=== PATIENT | male | born 2000 | race Caucasian/White ===

== ENCOUNTER 2020-04-16 16:12 | Emergency (ER) | payer BC, SELFPAY ==
[2020-04-16 16:13] VITALS: BP 146/06; BP 146/106; PULSE 100; RESP 18; TEMP 35.8; O2SAT 99; BMI 28.8
--- NOTE | 2020-04-16 16:25 | CT_ITS ---
STUDY: CT ABDOMEN AND PELVIS WITHOUT CONTRAST REASON FOR EXAM: Male, 20 years old. PT STATED RLQ PAIN, HX CROHNS RADIATION DOSAGE (If Supplied By Facility): CTDIvol = ( 8.44 ) mGy, DLP = ( 438.70 ) mGycm TECHNIQUE: Transaxial images were obtained from the dome of the diaphragm to the symphysis pubis without oral contrast, and without intravenous contrast. Sagittal and coronal images were reconstructed. Individualized dose optimization techniques were used for this CT. COMPARISON: None. FINDINGS: The visualized lung bases are unremarkable. The visualized portions of the heart are within normal limits. Normal liver. Normal gallbladder and extrahepatic biliary system. Normal spleen. Normal pancreas. Normal bilateral adrenal glands. Right ureteral vesicle junction with mild ureteral dilatation and hydronephrosis. Normal left kidney. Normal visualized stomach. Normal small intestine. Normal colon. The appendix is visualized and appears normal. Normal abdominal aorta. Normal inferior vena cava. Normal retroperitoneum. Normal urinary bladder. Normal abdominal wall. Normal osseous structures. CT/Abdomen/Pelvis without Cont IMPRESSION: 2 mm obstructing stone at the right ureterovesical junction with mild ureteral dilatation and hydronephrosis per Electronically Signed: Narayan Clayton MD at 17:14 EDT Tel , Service support ,
--- NOTE | 2020-04-16 16:26 | ED.VIS.GEN ---
History of Present Illness Chief Complaint: Abd Pain Narrative: 20-year-old male presenting with right flank pain with radiation to the right testicle. This began within the last hour. He states he has associated nausea. He describes the pain as sharp. He does state that he has Crohn's disease but this came out of nowhere it is different than it feels when he has a Crohn's flare. He does not have a fever or chills. He said he did become clammy when the pain started. Past Medical History - Allergies and Home Meds Allergies/Adverse Reactions: Allergies No Known Allergies Allergy (Verified 04/16/20 16:13) Primary Care Physician: Guillermina Medina,Out of [Primary Care Provider] - Prior records reviewed: Yes Past Medical History: - - Known's disease Lives: With Family Smoking Status: Smoker, status unknown Alcohol: None Drugs: None Review of Systems General: Reports: Sweats. Denies: Chills, Fever Eyes: Denies: Visual changes - bilaterally, Diplopia ENT: Denies: Rhinorrhea, Sore throat Cardiovascular: Denies: Chest pain, Palpitations Respiratory: Denies: Dyspnea, Cough, Dyspnea on exertion Gastrointestinal: Reports: Abdominal pain, Nausea, Vomiting. Denies: Diarrhea, Constipation Genitourinary: Denies: Dysuria, Hematuria Musculoskeletal: Reports: Back pain - Right flank pain. Denies: Myalgias, Arthralgias Skin: Denies: Rash, Abscess Neurological: Denies: Headache, Weakness Physical Exam Vital Signs/Narrative: Vital Signs Temp Pulse Resp BP Pulse Ox 04/16/20 16:13 96.5 F L 100 18 146/06 H 99 Inital Vital Signs reviewed: Yes General: Well nourished, No Acute Distress Head: Normocephalic, Atraumatic Eyes: Perrl, EOMI. Negative for: Scleral icterus ENT: Moist mucous membranes, No rhinorrhea Cardiovascular: Regular rate, Regular rhythm Respiratory: No distress, CTA bilaterally Abdomen: Soft, Nondistended, - - Mild right-sided abdominal tenderness. Non-peritoneal. Back: CVA tenderness - Right Extremities: Nontender, No edema Skin: Normal color, No rash Neurological: Alert, Oriented x3 Psychological: Normal affect, Normal Mood Diagnostic/Tx/Re-eval Clinical Impression(s) from Imaging Studies Abdomen/Pelvis CT 04/16/20 16:25 IMPRESSION: 2 mm obstructing stone at the right ureterovesical junction with mild ureteral dilatation and hydronephrosis per Electronically Signed: Narayan Clayton MD at 17:14 EDT Tel , Service support , Laboratory Data 04/16/20 04/16/20 04/16/20 16:25 16:30 16:30 WBC 8.7 RBC 4.89 Hgb 14.5 Hct 42.9 MCV 87.7 MCH 29.7 MCHC 33.8 RDW Std Deviation 37.0 RDW Coeff of Mary 11.5 L Plt Count 354 MPV 9.6 Immature Gran % (Auto) 0.300 Neut % (Auto) 45.3 L Lymph % (Auto) 36.7 [place] % (Auto) 12.0 H Eos % (Auto) 4.7 Baso % (Auto) 1.0 Absolute Neuts (auto) 4.0 Absolute Lymphs (auto) 3.20 Nucleated RBC % 0 Sodium 142 Potassium 3.5 Chloride 112 H Carbon Dioxide 25.0 Anion Gap 5 BUN 14 Creatinine 1.05 Estim Creat Clear Calc 104.05 Est GFR (MDRD) Af Amer 114 Est GFR (MDRD) Non-Af 95 BUN/Creatinine Ratio 13.3 Glucose 109 H Calcium 9.0 Urine Color Yellow Urine Clarity Cloudy Urine pH 6.0 Ur Specific [place] 1.025 Urine Protein 30 H Urine Glucose (UA) Normal Urine Ketones Negative Urine Occult Blood 250 H Urine Nitrite Negative Urine Bilirubin Negative Urine Urobilinogen Normal Ur Leukocyte Esterase Negative Urine RBC 5-10 SEEN Urine WBC 0 SEEN Ur Squamous Epith Cells 0 SEEN Amorphous Sediment 2+ Urine Bacteria 4+ Urine Mucus 0 SEEN - Medical Decision Making Patient presents with right flank pain as well as radiation to the right testicle. His urinalysis does show hematuria without signs of infection. CBC and BMP are unremarkable. CT abdomen pelvis without IV contrast shows a 2 mm distal ureteral stone. Patient was treated with Toradol and Zofran and felt improved on reevaluation. He will be sent home with Percocet, Flomax, Zofran. He is given strict return precautions. He was given follow-up with urology. Patient stable for discharge. Impression: 1. Hematuria 2. 2 mm distal ureteral stone ED Disposition - Plan for ED Patient: Disposition: Home or Assisted Living Instructions: ED Renal Stone w Colic Prescriptions: Tamsulosin HCl [Flomax] 0.4 mg PO DAILY #7 cap Prescription Printed Oxycodone HCl/Acetaminophen [Percocet 5/325] 1 tab PO Q6H PRN PRN 3 Days #12 tab PRN Reason: Pain Prescription Printed Ondansetron [Zofran Odt] 4 mg PO Q8H PRN PRN #14 tab PRN Reason: Nausea Prescription Printed Referrals: [facility] Doctor,Out of [Primary Care Provider] -
[2020-04-16 16:38] LABS: Mucous, Urine 0 SEEN /hpf (<or=2+); Squamous Epithelial Cells - UA 0 SEEN /hpf (0-5); White Blood Cells 0 SEEN /hpf (0-5)
[2020-04-16] MEDS: Ketorolac 30 MG/ML Syringe IV (16:38)
[2020-04-16] MEDS: Ondansetron 4 MG/2 ML Vial IV (16:39)
[2020-04-16 16:50] LABS: Basophil# 0.09 X10^3/uL; Eosinophil# 0.41 X10^3/uL; Eosinophils% 4.7 % (0-5); Hematocrit 42.9 % (40-54); Hemoglobin 14.5 g/dL (13.0-16.5); Lymphocyte % 36.7 % (19-41); Mean Corp Hgb Conc 33.8 g/dL (32-36); Mean Corpuscular Hgb 29.7 pg (27.0-32.0); Mean Corpuscular Volume 87.7 fL (80-94); Mean Platelet Vol. 9.6 fl (6.2-12.0); Monocyte# 1.05 X10^3/uL; NRBC Flagged by Analyzer 0 % (0-5); Neutrophil # 3.95 X10^3/uL (2.7-7.7); Neutrophil % 45.3 % (47-70); Platelet Count 354 K/mm3 (150-450); RBC Distribution Width CV 11.5 % (11.6-14.6); Red Blood Count 4.89 M/mm3 (4.6-6.2); White Blood Count 8.7 K/mm3 (4.4-11.0)
[2020-04-16 16:58] LABS: Color, Urine Yellow (Yellow); Glucose, Dipstick Normal (Normal); Ketone-Dipstick Negative (Negative); Leukocyte Esterase-Dipstick Negative /ul (Negative); Nitrite-Dipstick Negative (Negative); Occult Blood-Urine 250 /ul (Negative); Protein-Dipstick 30 mg/dl (Negative); Specific Gravity, Urine 1.025 (1.002-1.030); Urine Bilirubin Dipstick Negative (Negative); Urine Clarity Cloudy (Clear); Urine Urobilinogen Normal (Normal)
[2020-04-16 17:05] LABS: Anion Gap 5 (5-15); BUN 14 mg/dL (7-18); BUN/Creat Ratio 13.3 RATIO (10-20); Chloride 112 mmol/L (98-107); Creatinine, Serum 1.05 mg/dL (0.70-1.30); EST Glomerular Filtration Rate 95 mL/min (>60); Est Glom Filt Rate - Afr Amer 114 mL/min (>60); Estimated Creatinine Clearance 104.05 ml/min; Glucose 109 mg/dL (74-106); Potassium 3.5 mmol/L (3.5-5.1); Sodium Level 142 mmol/L (136-145)
[2020-04-16 18:04] LABS: Amorphous Sediment 2+; Bacteria 4+ /hpf (None Seen); Red Blood Cells-Urine 5-10 SEEN /hpf (0-5)
[2020-04-16 18:26] VITALS: BP 118/74; PULSE 67; RESP 18; O2SAT 99
== END 2020-04-16 18:26 | disposition home or self-care (01) ==
PROVIDERS: Emergency Provider Student in an Organized Health Care Education/Training Program
DX: R31.9 Hematuria, unspecified (principal); N20.1 Calculus of ureter
CPT/HCPCS: 74176; 80048; 81001; 85025; 96374; 96375; 99284; A4216; J2405

== ENCOUNTER 2020-07-22 14:32 | Emergency (ER) | payer BC, SELFPAY ==
[2020-07-22 14:32] VITALS: BP 128/69; PULSE 91; RESP 18; TEMP 35.8; BMI 29.2
[2020-07-22] MEDS: Ketorolac 30 MG/ML Syringe IM (15:20)
[2020-07-22 15:29] LABS: Bacteria 0 SEEN /hpf (None Seen); Squamous Epithelial Cells - UA 0 SEEN /hpf (0-5); White Blood Cells 0 SEEN /hpf (0-5)
[2020-07-22 15:52] LABS: Color, Urine Yellow (Yellow); Glucose, Dipstick Normal (Normal); Ketone-Dipstick Negative (Negative); Leukocyte Esterase-Dipstick Negative /ul (Negative); Nitrite-Dipstick Negative (Negative); Occult Blood-Urine 250 /ul (Negative); Protein-Dipstick 15 mg/dl (Negative); Urine Bilirubin Dipstick Negative (Negative); Urine Clarity Sl. Cloudy (Clear); Urine Urobilinogen Normal (Normal)
--- NOTE | 2020-07-22 16:21 | ED.VIS.GI ---
History of Present Illness Chief Complaint: Flank Pain Narrative: Patient presenting for evaluation secondary to left-sided flank pain. Patient reports that he had a history of a right-sided kidney stone in the past, he had an onset of symptoms today that felt somewhat similar. Left-sided flank pain that radiated down to his left groin, was relatively severe and associated with nausea but no vomiting. Patient reports that he has been taking Percocet and Flomax for this at home, he only since had resolution. Patient is never followed up with the urologist for this. Patient does report that he is feeling to urinary frequency. Review of systems otherwise negative. Past Medical History - Allergies and Home Meds Allergies/Adverse Reactions: Allergies No Known Allergies Allergy (Verified 04/16/20 16:13) Primary Care Physician: DANIEL RIDER [Other] Smoking Status: Never smoker Review of Systems All systems negative except as indicated General: Denies: Chills, Fever, Sweats Eyes: Denies: Visual changes - bilaterally, Diplopia ENT: Denies: Rhinorrhea, Sore throat Cardiovascular: Denies: Chest pain, Palpitations Respiratory: Denies: Dyspnea, Cough, Dyspnea on exertion Gastrointestinal: Reports: Nausea Genitourinary: Reports: Frequency, - - Flank pain Musculoskeletal: Denies: Back pain, Extremity Pain Skin: Denies: Rash, Wounds Neurological: Denies: Headache, Weakness, Numbness Physical Exam Vital Signs/Narrative: Vital Signs Temp Pulse Resp BP 07/22/20 14:32 96.4 F L 91 18 128/69 H Inital Vital Signs reviewed: Yes General: Well nourished, Well developed, No Acute Distress Head: Normocephalic, Atraumatic Eyes: Perrl, EOMI ENT: Moist mucous membranes, No rhinorrhea Neck: Supple, Nontender Cardiovascular: Regular rate, Regular rhythm, No murmurs Respiratory: No distress, CTA bilaterally, Chest nontender Abdomen: Soft, Nontender, Nondistended, Normal bowel sounds Back: Nontender, Normal Inspection Extremities: Nontender, No edema Skin: Normal color, No rash Neurological: Alert, Oriented x3, Cranial nerves II-XII grossly intact, Normal Strength, Normal Sensation Psychological: Normal affect, Normal Mood Diagnostic/Tx/Re-eval - Medical Decision Making Patient presented secondary to flank pain. Bedside ultrasound on the patient shows mild left-sided hydronephrosis with a stone within the patient's left kidney, no evidence of hydronephrosis of the right kidney. Urinalysis was obtained patient was given a dose of Toradol. Urinalysis shows the patient to have blood but no signs of infection. Repeat evaluation of the patient he had resolution of his pain. Patient would be discharged with a course of Toradol and Flomax. Will be instructed to follow-up with urology. ED Disposition - Plan for ED Patient: Disposition: Home or Assisted Living Diagnosis: Urolithiasis Instructions: ED Kidney Stone w/ Colic Prescriptions: Tamsulosin HCl [Flomax] 0.4 mg PO DAILY #7 cap Prescription Printed Ketorolac [Toradol] 10 mg PO Q6H #20 tab Prescription Printed Referrals: Chadwick Sanchez MD [STAFF PHYSICIAN] - 5-7 Days
[2020-07-22 16:40] LABS: Amorphous Sediment 1+ URATE; Mucous, Urine 1+ /hpf (<or=2+); Red Blood Cells-Urine > 100 SEEN /hpf (0-5)
[2020-07-22 17:37] VITALS: BP 126/84; PULSE 69; RESP 20
== END 2020-07-22 17:38 | disposition home or self-care (01) ==
PROVIDERS: Emergency Provider Emergency Medicine
DX: N20.9 Urinary calculus, unspecified (principal); Z87.442 Personal history of urinary calculi
CPT/HCPCS: 81001; 96372; 99282

== ENCOUNTER → 2020-07-29 14:51 | Outpatient (CLI) | payer BC, SELFPAY ==
[2020-07-22 14:32] VITALS: BMI 29.2
--- NOTE | 2020-07-29 14:53 | RAD_ITS ---
STUDY: X-RAY - ABDOMEN/PELVIS REASON FOR EXAM: Male, 20 years old. LEFT SIDED ABD PAIN, H/O STONES TECHNIQUE: Two AP supine views of the abdomen and pelvis. COMPARISON: CT abdomen pelvis 04/16/2020 FINDINGS: Normal visualized lung bases. Moderate amount of retained fecal material in the right colon. There is no demonstrated free abdominal air. The small left mid renal calculus in distal right ureteral calculus on previous CT are not visualized. Normal soft tissue structures. Normal visualized osseous structures. RAD/Abdomen Single View IMPRESSION: There is no obstruction or perforation on supine image. Moderate amount of retained fecal material in the right colon is nonspecific. Previous seen small renal and ureteral calculi on CT are not visualized. Electronically Signed: Gricelda Kenyon MD at 23:43 EST , Service support ,
== END ==
PROVIDERS: Referring Provider Urology; Visit Provider Urology
DX: N20.1 Calculus of ureter (principal)
CPT/HCPCS: 74018

== ENCOUNTER 2021-01-23 18:07 | Emergency (ER) | payer BC, SELFPAY ==
[2021-01-23 18:07] VITALS: BP 128/76; PULSE 93; RESP 16; TEMP 36.6; O2SAT 97; BMI 29.7
--- NOTE | 2021-01-23 19:28 | EX.ED.DYSGE1 ---
HPI History of Present Illness Chief Complaint: Flank Pain Informant: patient Onset/Context/Timing Onset: Today Current Severity: Mild Maximum Severity: Mild Narrative Narrative: Patient presents with right flank pain radiating into the right testicle. He has had similar symptoms with prior kidney stones. He has not noted any dysuria or obvious blood in his urine. He has been able to pass his prior kidney stones and did not require surgery. [facility] Medical History Asthma Crohn's disease Kidney stones Home Medications vedolizumab 300 mg IV Q60D 04/16/20 [History Last Taken Unknown] ketorolac 10 mg PO TID PRN #14 tab 01/23/21 [Rx Last Taken Unknown] ondansetron 4 mg PO Q8H PRN #10 tab 01/23/21 [Rx Last Taken Unknown] oxycodone-acetaminophen [Percocet] 1 tab PO Q6H PRN 3 Days #10 tab 01/23/21 [Rx Last Taken Unknown] Allergy/AdvReac Type Severity Reaction Status Date / Time No Known Allergies Allergy Verified 01/23/21 18:09 Social History Smoking Status: Never smoker ROS ROS ED Constitutional Constitutional ED: Denies chills or fever(s) Eyes Eyes: Denies change in vision ENT ENT ED: Denies sore throat Cardiovascular Cardiovascular: Denies chest pain Respiratory/Chest Respiratory/Chest: Denies cough or dyspnea Gastrointestinal Gastrointestinal: Reports abdominal pain; Denies diarrhea, nausea or vomiting Genitourinary Genitourinary ED: Denies dysuria Musculoskeletal Musculoskeletal: Reports back pain Integumentary Denies rash Neurologic Neurologic: Denies headache(s) or weakness Psychiatric Psychiatric: Denies anxiety or depression Endocrine Endocrinology: Denies polydipsia or polyuria Allergic/Immunologic Allergic/Immunologic ED: Denies urticaria EXAM Physical Exam Const Vital Signs: 01/23/21 18:07 Temperature 97.9 F Temperature Source Temporal Pulse Rate 93 Respiratory Rate 16 Blood Pressure 128/76 H Blood Pressure Mean 93 Pulse Ox 97 Oxygen Delivery Method Room Air Positive well nourished and well developed General Appearance ED: well developed HEENT Reports normocephalic and head/scalp atraumatic Eyes PERRL and EOMs intact bilaterally Neck supple Chest Wall inspection of chest normal and palpation of chest normal Resp normal respiratory effort and clear to auscultation bilaterally Cardio regular rate and regular rhythm GI normal to inspection, nondistended, normoactive bowel sounds Palpation: soft Back/Spine no CVA tenderness Extremity normal to inspection Neuro oriented x3 and no sensory deficits noted Sensorium / Orientation: alert Motor Exam: strength 5/5 throughout Psych mental status grossly normal Skin no rashes or lesions noted MDM MDM MDM Narrative Medical decision making narrative: Patient was given p.o. Toradol. He did drive himself here and asked for no narcotics. He also asked to avoid CT if at all possible as he has had multiple CTs in the past. Lab Data Attestation: I reviewed the patient's lab results. Labs: Laboratory Results - last 24 hr 01/23/21 19:20 Urine Color Yellow Urine Clarity Clear Urine pH 6.0 Ur Specific [place] 1.025 Urine Protein 30 H Urine Glucose (UA) Normal Urine Ketones 5 H Urine Occult Blood 150 H Urine Nitrite Negative Urine Bilirubin Negative Urine Urobilinogen 1 H Ur Leukocyte Esterase 25 H Urine RBC 5-10 SEEN Urine WBC 0-5 SEEN Ur Squamous Epith Cells 0 SEEN Urine Bacteria 0 SEEN Urine Mucus 2+ Treatment and Re-Evaluation Comments:: On repeat evaluation patient is resting comfortably. He states the Toradol did take the edge off of his pain. He does have blood noted in his urine and likely has another kidney stone. We will treat him symptomatically and if his symptoms worsen he will return for further work-up. He will be referred to Dr. Sanchez whom he has seen in the past. Discharge Plan Triage Chief Complaint: Flank Pain ED Provider: Cally Hauser Dx/Rx/DC Orders Clinical Impression: Kidney stone Prescriptions: New ketorolac 10 mg tablet 10 mg PO TID PRN (Reason: pain) Qty: 14 RF: 0 ondansetron 4 mg tablet,disintegrating 4 mg PO Q8H PRN (Reason: nausea and vomiting) Qty: 10 RF: 0 oxycodone-acetaminophen [Percocet] 5-325 mg tablet 1 tab PO Q6H PRN (Reason: pain) 3 Days Qty: 10 RF: 0 Discontinued ondansetron 4 MG tablet 4 mg PO Q8H PRN PRN (Reason: Nausea) Qty: 14 RF: 0 tamsulosin 0.4 MG capsule 0.4 mg PO DAILY Qty: 7 RF: 0 ketorolac 10 MG tablet 10 mg PO Q6H Qty: 20 RF: 0 tamsulosin 0.4 MG capsule 0.4 mg PO DAILY Qty: 7 RF: 0 No Action vedolizumab 300 MG recon soln 300 mg IV Q60D RF: 0 Referrals: DANIEL RIDER [Other] Chadwick Sanchez MD [STAFF PHYSICIAN] - 3-5 Days if not improving Disposition Disposition: Home, self care
[2021-01-23 19:30] LABS: Bacteria 0 SEEN /hpf (None Seen); Squamous Epithelial Cells - UA 0 SEEN /hpf (0-5)
[2021-01-23 19:31] LABS: Color, Urine Yellow (Yellow); Glucose, Dipstick Normal (Normal); Ketone-Dipstick 5 mg/dl (Negative); Leukocyte Esterase-Dipstick 25 /ul (Negative); Nitrite-Dipstick Negative (Negative); Occult Blood-Urine 150 /ul (Negative); Protein-Dipstick 30 mg/dl (Negative); Specific Gravity, Urine 1.025 (1.002-1.030); Urine Bilirubin Dipstick Negative (Negative); Urine Clarity Clear (Clear); Urine Urobilinogen 1 mg/dl (Normal)
[2021-01-23] MEDS: Ketorolac 10 MG Tablet PO (19:35)
[2021-01-23 19:45] LABS: Mucous, Urine 2+ /hpf (<or=2+); Red Blood Cells-Urine 5-10 SEEN /hpf (0-5); White Blood Cells 0-5 SEEN /hpf (0-5)
== END 2021-01-23 21:00 | disposition home or self-care (01) ==
PROVIDERS: Emergency Provider Emergency Medicine
DX: N20.0 Calculus of kidney (principal); Z87.442 Personal history of urinary calculi
CPT/HCPCS: 81001; 99283

== ENCOUNTER → 2021-01-26 16:39 | Outpatient (CLI) | payer BC, SELFPAY ==
[2021-01-23 18:07] VITALS: BMI 29.7
[2021-02-04 13:47] LABS: Size <1 mm; Source Not Provided
== END ==
PROVIDERS: Referring Provider Urology; Visit Provider Urology
DX: N20.0 Calculus of kidney (principal)
CPT/HCPCS: 82360